=== PATIENT | female | born 1995 | race American Indian/Alaskan Native ===

== ENCOUNTER 2016-06-26 23:28 | Emergency (ER) | payer SELFPAY ==
[2016-06-27 01:35] VITALS: BP 117/68
== END 2016-06-27 01:35 | disposition left against medical advice (07) ==
LOC: ED 23:28
DX: O46.91 Antepartum hemorrhage, unspecified, first trimester (principal); Z53.21 Procedure and treatment not carried out due to patient leaving prior to being seen by health care provider